=== PATIENT | female | born 1970 | race Hispanic/Latino ===

== ENCOUNTER 2021-12-07 21:12 | Emergency (ER) | payer BC, SELFPAY ==
[2021-12-07] MEDS ORDERED: Ibuprofen 200 MG TAB ONE ×3 (22:33→22:39)
[2021-12-07] MEDS ORDERED: Bacitracin 1 PK ONE (23:46)
[2021-12-07] MEDS ORDERED: HYDROcodone/Acetaminophen 5/325 mg Tablet ONE (23:46)
== END 2021-12-07 23:59 | disposition home or self-care (01) ==
LOC: ERS 21:12
DX: S00.83XA Contusion of other part of head, initial encounter (principal); S50.02XA Contusion of left elbow, initial encounter; E11.9 Type 2 diabetes mellitus without complications; Z79.84 Long term (current) use of oral hypoglycemic drugs; W01.0XXA Fall on same level from slipping, tripping and stumbling without subsequent striking against object, initial encounter